=== PATIENT | male | born 1965 | race Caucasian/White ===

== ENCOUNTER 2022-07-27 20:32 | Emergency (ER) | payer MEDICAID ==
[~2022-07-27] VITALS: Ht 180.3 cm; Wt 79.9 kg
[2022-07-27 20:45] VITALS: BP 114/70
[2022-07-27] MEDS ORDERED: CEPH500C2 MT (21:12)
[2022-07-27] MEDS ORDERED: IBUP-2029 MT (21:12)
== END 2022-07-27 21:24 | disposition home or self-care (01) ==
LOC: ER 20:32
DX: L03.116 Cellulitis of left lower limb (principal); S80.862A Insect bite (nonvenomous), left lower leg, initial encounter; W57.XXXA Bitten or stung by nonvenomous insect and other nonvenomous arthropods, initial encounter; Y93.9 Activity, unspecified; Y92.9 Unspecified place or not applicable
CPT/HCPCS: 99281